=== PATIENT | male | born 1950 | race Caucasian/White ===

== ENCOUNTER 2017-05-10 08:01 | Inpatient (IN) | payer MEDICARE, MEDICAID ==
[~2017-05-10] VITALS: Ht 175.3 cm; Wt 98.5 kg
[2017-05-10] MEDS ORDERED: LISI-167 PO ×2 (08:58→09:00)
[2017-05-10] MEDS ORDERED: SPIR25TA3 PO (08:58)
[2017-05-10] MEDS ORDERED: ATOR-2 PO (08:58)
[2017-05-10] MEDS ORDERED: CARV12.52 PO (08:58)
[2017-05-10] MEDS ORDERED: APIX5TAB PO (08:58)
[2017-05-10 09:13] LABS: ALBUMIN 4.4 g/dL (3.4-5.0); ANION GAP 8 mmol/L (5-15); CALCIUM 8.7 mg/dL (8.5-10.1); CHLORIDE 110 mmol/L (98-107); CREATININE 5.02 mg/dL (0.7-1.3)
[2017-05-10 09:16] LABS: TROPONIN I < 0.015 ng/mL (0.000-0.045)
[2017-05-10] MEDS ORDERED: SODIUM CHLORIDE 0.9% 1,000ML IVBOLUS ONE (09:30)
[2017-05-10 09:35] LABS: BASOPHILS # (AUTO) 0.03 x10^3/uL (0-0.1); BASOPHILS % (AUTO) 0 % (0-1); EOSINOPHILS # (AUTO) 0.15 x10^3/uL (0-0.4); EOSINOPHILS % (AUTO) 1 % (1-7); LYMPHOCYTES # (AUTO) 2.58 x10^3/uL (1-3.4); LYMPHOCYTES % (AUTO) 18 % (22-44); MD NO; MEAN CORPUSCULAR HGB CONC 34.1 g/dL (33.2-36.2); MEAN CORPUSCULAR VOLUME 102.8 fL (81-97); MEAN PLATELET VOLUME 11.9 fL (7.4-10.4); MONOCYTES % (AUTO) 10 % (2-9); NEUTROPHILS # (AUTO) 9.94 x10^3/uL (1.8-6.8); NEUTROPHILS % (AUTO) 71 % (42-75); PLATELET COUNT 157 x10^3/uL (130-400); RED BLOOD COUNT 4.25 x10^6/uL (4.38-5.82); RED CELL DISTRIBUTION WIDTH 13.3 % (9.4-14.8)
[2017-05-10] MEDS ORDERED: SODIUM POLYSTYRENE SULFONATE ORAL SUSP ONE (09:45)
[2017-05-10] MEDS ORDERED: SODIUM BICARB 8.4%, 50ML SYRINGE ONE (09:45)
[2017-05-10] MEDS ORDERED: DEXTROSE 50%, 50ML SYRINGE ONE (09:45)
[2017-05-10] MEDS ORDERED: CALCIUM CHLORIDE 10%, 10ML SYR ONE (09:45)
[2017-05-10] MEDS ORDERED: INSULIN REGULAR 100 UNITS/ML, 3ML VIAL ONE (09:46)
[2017-05-10] MEDS ORDERED: SODIUM POLY SULFONATE UDC 15 GM/60 ML PO ONE (10:00)
[2017-05-10] MEDS ORDERED: CALCIUM CHLORIDE 10%, 10ML SYR IVPush ONE (10:00)
[2017-05-10] MEDS ORDERED: INSULIN REGULAR 100 UNITS/ML, 3ML VIAL IVPush ONE (10:00)
[2017-05-10] MEDS ORDERED: SODIUM BICARB 8.4%, 50ML SYRINGE IVPush ONE (10:00)
[2017-05-10] MEDS ORDERED: DEXTROSE 50%, 50ML SYRINGE IVPush ONE (10:00)
[2017-05-10] MEDS ORDERED: ALBUTEROL 0.5%, 20ML NPPB ONE (10:00)
[2017-05-10] MEDS ORDERED: SODIUM BICARBONATE 8.4% 150 MEQ in DEXTROSE 5% 1,000 ML IV SCH (11:00)
[2017-05-10 12:20] LABS: CLOSTRIDIUM DIFFICILE ANTIGEN NEGATIVE; CLOSTRIDIUM DIFFICILE TOXIN NEGATIVE (Negative)
[2017-05-10] MEDS ORDERED: LABETALOL 5MG/ML, 20ML IVPush PRN (14:00)
[2017-05-10] MEDS ORDERED: ONDANSETRON ODT 4 MG PO PRN (14:00)
[2017-05-10] MEDS ORDERED: ONDANSETRON 2MG/ML, 2ML IVPush PRN (14:00)
[2017-05-10 15:07] VITALS: BP 157/99
[2017-05-10] MEDS: HEPARIN 5,000 UNITS/ML, 1ML SQ SCH (16:19)
[2017-05-10 18:15] LABS: ANION GAP 12 mmol/L (5-15); CHLORIDE 107 mmol/L (98-107); CREATININE 3.27 mg/dL (0.7-1.3)
[2017-05-10 19:55] VITALS: BP 90/55
[2017-05-10] MEDS ORDERED: ACETAMINOPHEN 325 MG TABLET ONE (20:43)
[2017-05-10] MEDS: CARVEDILOL 12.5 MG TABLET PO SCH (20:51)
[2017-05-10] MEDS: ATORVASTATIN 80 MG TABLET PO SCH (20:51)
[2017-05-10] MEDS: SODIUM CHLORIDE 0.9% 1,000 ML IV SCH (20:52)
[2017-05-10] MEDS ORDERED: ACETAMINOPHEN 325 MG TABLET PO PRN (21:00)
[2017-05-10] MEDS ORDERED: FAMOTIDINE 20 MG/2 ML IVPush SCH (21:00)
[2017-05-11] MEDS: HEPARIN 5,000 UNITS/ML, 1ML SQ SCH (00:22)
[2017-05-11 03:51] VITALS: BP 91/36
[2017-05-11] MEDS: SODIUM CHLORIDE 0.9% 1,000 ML IV SCH (05:30)
[2017-05-11 05:43] LABS: CHLORIDE 111 mmol/L (98-107)
[2017-05-11 05:56] LABS: ALANINE AMINOTRANSFERASE 22 U/L (12-78); ALBUMIN 2.8 g/dL (3.4-5.0); ALKALINE PHOSPHATASE 52 U/L (45-117); ANION GAP 9 mmol/L (5-15); BILIRUBIN,TOTAL 0.4 mg/dL (0.2-1.0); CALCIUM 7.4 mg/dL (8.5-10.1); TOTAL PROTEIN 5.6 g/dL (6.4-8.2)
[2017-05-11 06:18] LABS: MEAN CORPUSCULAR HEMOGLOBIN 35.4 pg (27.5-34.5); MEAN CORPUSCULAR HGB CONC 34.7 g/dL (33.2-36.2); MEAN CORPUSCULAR VOLUME 102.2 fL (81-97); MEAN PLATELET VOLUME 12.5 fL (7.4-10.4); PLATELET COUNT 102 x10^3/uL (130-400); RED BLOOD COUNT 3.18 x10^6/uL (4.38-5.82); RED CELL DISTRIBUTION WIDTH 13.3 % (9.4-14.8)
[2017-05-11 06:19] LABS: BASOPHILS # (AUTO) 0.04 x10^3/uL (0-0.1); BASOPHILS % (AUTO) 0 % (0-1); EOSINOPHILS # (AUTO) 0.13 x10^3/uL (0-0.4); EOSINOPHILS % (AUTO) 1 % (1-7); LYMPHOCYTES # (AUTO) 2.59 x10^3/uL (1-3.4); LYMPHOCYTES % (AUTO) 28 % (22-44); MD SCAN; MONOCYTES # (AUTO) 1.34 x10^3/uL (0.2-0.8); MONOCYTES % (AUTO) 14 % (2-9); NEUTROPHILS # (AUTO) 5.22 x10^3/uL (1.8-6.8); NEUTROPHILS % (AUTO) 56 % (42-75)
[2017-05-11 08:00] VITALS: BP 91/62
[2017-05-11] MEDS: CARVEDILOL 12.5 MG TABLET PO SCH ×2 (09:00→20:52)
[2017-05-11] MEDS: SENNA/DOCUSATE TABLET PO SCH (09:00)
[2017-05-11] MEDS: SODIUM BICARBONATE 8.4% 75 MEQ in SODIUM CHLORIDE 0.45% 1,000 ML IV SCH ×2 (10:22→19:42)
[2017-05-11 10:48] LABS: FOLATE LEVEL 8.1 ng/mL (3.1-17.5); THYROID STIMULATING HORMONE 0.834 mIU/L (0.358-3.740)
[2017-05-11 14:00] VITALS: BP 115/56
[2017-05-11 20:31] VITALS: BP 107/66
[2017-05-11] MEDS: APIXABAN 5 MG TABLET PO SCH (20:52)
[2017-05-11] MEDS: FAMOTIDINE 20 MG TABLET PO SCH (20:52)
[2017-05-11] MEDS: ATORVASTATIN 80 MG TABLET PO SCH (20:52)
[2017-05-12 02:00] VITALS: BP 122/67
[2017-05-12] MEDS ORDERED: PANTOPRAZOLE 20MG TABLET PO SCH (07:30)
[2017-05-12] MEDS: SODIUM BICARBONATE 8.4% 75 MEQ in SODIUM CHLORIDE 0.45% 1,000 ML IV SCH (07:39)
[2017-05-12 07:51] VITALS: BP 123/75
[2017-05-12 08:47] LABS: ANION GAP 6 mmol/L (5-15); CALCIUM 7.7 mg/dL (8.5-10.1); CHLORIDE 110 mmol/L (98-107); CREATININE 2.59 mg/dL (0.7-1.3)
[2017-05-12] MEDS: SENNA/DOCUSATE TABLET PO SCH (09:00)
[2017-05-12] MEDS: APIXABAN 5 MG TABLET PO SCH ×2 (09:02→21:41)
[2017-05-12] MEDS: CARVEDILOL 12.5 MG TABLET PO SCH ×2 (09:02→21:41)
[2017-05-12] MEDS ORDERED: SODIUM BICARBONATE 8.4% 150 MEQ in DEXTROSE 5% 1,000 ML IV SCH (10:30)
[2017-05-12] MEDS: SODIUM BICARBONATE 8.4% 150 MEQ in DEXTROSE 5% 1,000 ML IV SCH ×2 (11:15→22:43)
[2017-05-12 13:56] VITALS: BP 162/77
[2017-05-12 20:00] VITALS: BP 128/77
[2017-05-12] MEDS: FAMOTIDINE 20 MG TABLET PO SCH (21:41)
[2017-05-12] MEDS: ATORVASTATIN 80 MG TABLET PO SCH (21:41)
[2017-05-13 04:00] VITALS: BP 127/76
[2017-05-13 06:37] LABS: ALBUMIN 2.6 g/dL (3.4-5.0); ANION GAP 3 mmol/L (5-15); CALCIUM 7.4 mg/dL (8.5-10.1); CHLORIDE 107 mmol/L (98-107)
[2017-05-13 06:40] LABS: ALANINE AMINOTRANSFERASE 21 U/L (12-78); ALKALINE PHOSPHATASE 40 U/L (45-117); BILIRUBIN,TOTAL 0.2 mg/dL (0.2-1.0); CREATININE 2.19 mg/dL (0.7-1.3); TOTAL PROTEIN 5.4 g/dL (6.4-8.2)
[2017-05-13 06:58] VITALS: BP 116/69
[2017-05-13 06:59] LABS: MEAN CORPUSCULAR HEMOGLOBIN 35.4 pg (27.5-34.5); MEAN CORPUSCULAR HGB CONC 34.3 g/dL (33.2-36.2); MEAN CORPUSCULAR VOLUME 103.4 fL (81-97); MEAN PLATELET VOLUME 12.7 fL (7.4-10.4); PLATELET COUNT 78 x10^3/uL (130-400); RED BLOOD COUNT 2.74 x10^6/uL (4.38-5.82); RED CELL DISTRIBUTION WIDTH 13.4 % (9.4-14.8)
[2017-05-13 07:00] LABS: BASOPHILS # (AUTO) 0.03 x10^3/uL (0-0.1); BASOPHILS % (AUTO) 0 % (0-1); EOSINOPHILS # (AUTO) 0.09 x10^3/uL (0-0.4); EOSINOPHILS % (AUTO) 1 % (1-7); LYMPHOCYTES # (AUTO) 2.03 x10^3/uL (1-3.4); LYMPHOCYTES % (AUTO) 26 % (22-44); MD MORPH REVIEW ONLY; MONOCYTES # (AUTO) 1.21 x10^3/uL (0.2-0.8); MONOCYTES % (AUTO) 16 % (2-9); NEUTROPHILS # (AUTO) 4.42 x10^3/uL (1.8-6.8); NEUTROPHILS % (AUTO) 57 % (42-75)
[2017-05-13 07:01] LABS: ANISOCYTOSIS 1+
[2017-05-13 07:02] LABS: <PLATELET ESTIMATE> DECREASED; LARGE PLATELETS 1+
[2017-05-13] MEDS ORDERED: MAGNESIUM SULFATE PMX 2GM/50ML 50 ML IV ONE (08:00)
[2017-05-13] MEDS: SENNA/DOCUSATE TABLET PO SCH (09:00)
[2017-05-13] MEDS: CARVEDILOL 12.5 MG TABLET PO SCH ×2 (09:32→21:06)
[2017-05-13] MEDS: APIXABAN 5 MG TABLET PO SCH ×2 (09:32→21:06)
[2017-05-13 14:00] VITALS: BP 135/76
[2017-05-13 19:39] VITALS: BP 132/75
[2017-05-13] MEDS: ATORVASTATIN 80 MG TABLET PO SCH (21:05)
[2017-05-13] MEDS: FAMOTIDINE 20 MG TABLET PO SCH (21:05)
[2017-05-14 02:19] VITALS: BP 99/55
[2017-05-14 07:09] VITALS: BP 133/82
[2017-05-14 07:39] LABS: ALBUMIN 2.9 g/dL (3.4-5.0); ANION GAP 7 mmol/L (5-15); CALCIUM 7.5 mg/dL (8.5-10.1); CHLORIDE 105 mmol/L (98-107); CREATININE 2.22 mg/dL (0.7-1.3)
[2017-05-14] MEDS: CARVEDILOL 12.5 MG TABLET PO SCH (08:54)
[2017-05-14] MEDS: APIXABAN 5 MG TABLET PO SCH (08:54)
[2017-05-14] MEDS: SENNA/DOCUSATE TABLET PO SCH (08:57)
[2017-05-14] MEDS ORDERED: LISINOPRIL 5 MG TABLET PO SCH (09:00)
[2017-05-14] MEDS ORDERED: SPIRONOLACTONE 25 MG TABLET PO SCH (09:00)
[2017-05-14] MEDS ORDERED: ASPI-621 PO (09:26)
[2017-05-14] MEDS ORDERED: TORS10TA4 PO (09:28)
[2017-05-15] MEDS ORDERED: ASPIRIN 81 MG TABLET EC PO SCH (06:00)
== END 2017-05-14 10:30 | disposition home or self-care (01) | DRG 682 ==
LOC: ED 09:19 → EDIP 10:46 → 4WST 15:02 → DCLOUNGE 05-14 10:20
PROVIDERS: ADMIT Internal Medicine; ATTEND Internal Medicine
PROC: 02HV33Z Insertion of Infusion Device into Superior Vena Cava, Percutaneous Approach (ICD-10-PCS; principal; 2017-05-10)
PROC: B548ZZA Ultrasonography of Superior Vena Cava, Guidance (ICD-10-PCS; 2017-05-10)
PROC: 5A1D70Z Performance of Urinary Filtration, Intermittent, Less than 6 Hours Per Day (ICD-10-PCS; 2017-05-10)
DX: N17.9 Acute kidney failure, unspecified (principal); E43 Unspecified severe protein-calorie malnutrition; I47.2 Ventricular tachycardia; D68.69 Other thrombophilia; D69.6 Thrombocytopenia, unspecified; E87.2 Acidosis; E87.1 Hypo-osmolality and hyponatremia; I48.91 Unspecified atrial fibrillation; I12.9 Hypertensive chronic kidney disease with stage 1 through stage 4 chronic kidney disease, or unspecified chronic kidney disease; W18.30XA Fall on same level, unspecified, initial encounter; I25.10 Atherosclerotic heart disease of native coronary artery without angina pectoris; E78.5 Hyperlipidemia, unspecified; N18.9 Chronic kidney disease, unspecified; D72.829 Elevated white blood cell count, unspecified; D75.89 Other specified diseases of blood and blood-forming organs; E87.5 Hyperkalemia; F17.210 Nicotine dependence, cigarettes, uncomplicated; I25.5 Ischemic cardiomyopathy; I49.5 Sick sinus syndrome; Z79.01 Long term (current) use of anticoagulants; Z79.899 Other long term (current) drug therapy; Z83.3 Family history of diabetes mellitus; Z86.73 Personal history of transient ischemic attack (TIA), and cerebral infarction without residual deficits; Z95.810 Presence of automatic (implantable) cardiac defibrillator; I25.2 Old myocardial infarction; Z86.79 Personal history of other diseases of the circulatory system; Z87.442 Personal history of urinary calculi; Z95.1 Presence of aortocoronary bypass graft; Z99.2 Dependence on renal dialysis; Y93.89 Activity, other specified; Y92.89 Other specified places as the place of occurrence of the external cause; Z68.32 Body mass index [BMI] 32.0-32.9, adult
CPT/HCPCS: 36415; 36556; 71045; 76770; 76937; 77001; 80048; 80053; 82040; 82607; 82746; 83735; 84100; 84443; 84484; 85025; 86480; 86704; 86706; 87046; 87324; 87340; 87899; 93005; J1644; J7070; C1751; J1642; J3475; J7030; S0028

== ENCOUNTER 2019-11-19 09:40 | Observation (INO) | payer MEDICARE, MEDICAID ==
[~2019-11-19] VITALS: Ht 180.3 cm; Wt 116.0 kg
[~2019-11-19 09:40] MED LIST: APIX5TAB PO; ASPI81TA45 PO; ATOR-2 PO; ATOR40TA78 PO; CARV12.52 PO; FENTANYL PF 250 MCG/5ML ONE; FURO40TA6 PO; HYDR-3341 PO; LISI-167 PO; POTA20TA14 PO; SPIR25TA5 PO; TORS10TA4 PO
[2019-11-19] MEDS ORDERED: SODIUM CHLORIDE 0.9% 1,000 ML IV SCH ×2 (09:46)
[2019-11-19] MEDS ORDERED: CEFAZOLIN 2 GM/50 ML IVPB ONE ×2 (10:00→11:00)
[2019-11-19 10:05] VITALS: BP 167/78
[2019-11-19] MEDS ORDERED: SUCR1ORA5 PO (10:20)
[2019-11-19] MEDS ORDERED: PANT40TA6 PO (10:20)
[2019-11-19] MEDS ORDERED: POTA20TA6 PO (10:20)
[2019-11-19 10:46] LABS: BASOPHILS # (AUTO) 0.05 x10^3/uL (0-0.1); BASOPHILS % (AUTO) 1 % (0-1); EOSINOPHILS % (AUTO) 1 % (1-7); LYMPHOCYTES # (AUTO) 0.91 x10^3/uL (1-3.4); LYMPHOCYTES % (AUTO) 9 % (22-44); MD NO; MEAN CORPUSCULAR HEMOGLOBIN 28.8 pg (27.5-34.5); MEAN PLATELET VOLUME 10.4 fL (7.4-10.4); MONOCYTES # (AUTO) 1.33 x10^3/uL (0.2-0.8); MONOCYTES % (AUTO) 13 % (2-9); NEUTROPHILS # (AUTO) 7.52 x10^3/uL (1.8-6.8); NEUTROPHILS % (AUTO) 76 % (42-75); PLATELET COUNT 148 x10^3/uL (130-400); RED CELL DISTRIBUTION WIDTH 18.7 % (9.4-14.8)
[2019-11-19] MEDS ORDERED: ATOR40TA PO (10:46)
[2019-11-19] MEDS ORDERED: CARV3.1212 PO (10:46)
[2019-11-19] MEDS ORDERED: SUCR1TAB33 PO (10:47)
[2019-11-19 10:56] LABS: ANION GAP 7 mmol/L (5-15); CALCIUM 8.6 mg/dL (8.5-10.1); CHLORIDE 103 mmol/L (98-107); CREATININE 2.12 mg/dL (0.7-1.3)
[2019-11-19] MEDS ORDERED: DEXAMETHASONE 4 MG/ML, 1ML ONE (11:11)
[2019-11-19] MEDS ORDERED: SUCCINYLCHOLINE 20 MG/ML, 10ML ONE (11:11)
[2019-11-19] MEDS ORDERED: PROPOFOL 10 MG/ML, 20ML ONE (11:11)
[2019-11-19] MEDS ORDERED: ROCURONIUM 10MG/ML,5ML ONE (11:11)
[2019-11-19] MEDS ORDERED: ONDANSETRON 2MG/ML, 2ML ONE (11:17)
[2019-11-19] MEDS ORDERED: LIDOCAINE 1%, 20ML ONE ×2 (11:34→12:40)
[2019-11-19] MEDS ORDERED: CEFAZOLIN 1,000 MG ONE (12:34)
[2019-11-19] MEDS ORDERED: HOLD MEDICATION MC PRN (15:30)
[2019-11-19] MEDS ORDERED: ONDANSETRON 2MG/ML, 2ML IVPush PRN (16:00)
[2019-11-19] MEDS ORDERED: MEPERIDINE/PF 25MG/0.5ML IVPush PRN (16:00)
[2019-11-19] MEDS ORDERED: ALBUTEROL SULFATE 2.5 MG/3 ML NPPB PRN (16:00)
[2019-11-19] MEDS ORDERED: PROMETHAZINE 25 MG/ML, 1ML IVPush PRN (16:00)
[2019-11-19] MEDS ORDERED: DIAZEPAM 5 MG/ML, 2ML IVPush PRN (16:00)
[2019-11-19] MEDS ORDERED: LABETALOL 5MG/ML, 20ML IV PRN (16:00)
[2019-11-19] MEDS ORDERED: EPHEDRINE 50 MG/ML, 1ML IVPush PRN (16:00)
[2019-11-19] MEDS ORDERED: OXYcodone 5 MG/5 ML ORAL.SOL UDC PO PRN (16:00)
[2019-11-19] MEDS ORDERED: DIPHENHYDRAMINE 50 MG/ML, 1ML IVPush PRN (16:00)
[2019-11-19] MEDS ORDERED: MIDAZOLAM 1 MG/ML, 2ML IV PRN (16:00)
[2019-11-19] MEDS ORDERED: FENTANYL PF 100 MCG/2ML IV PRN (16:00)
[2019-11-19] MEDS ORDERED: ACETAMINOPHEN 325 MG TABLET PO PRN (16:00)
[2019-11-19] MEDS ORDERED: PROMETHAZINE 12.5 MG SUPP PR PRN (16:00)
[2019-11-19] MEDS ORDERED: hydrALAzine 20 MG/ML, 1ML IV PRN (16:00)
[2019-11-19] MEDS ORDERED: HYDROmorphone 1 MG/ML, 1ML INJ IVPush PRN (16:00)
[2019-11-19] MEDS ORDERED: SUCRALFATE 1 GM TABLET ONE (16:45)
[2019-11-19] MEDS: SUCRALFATE 1 GM TABLET PO SCH ×2 (16:54→19:56)
[2019-11-19 19:00] VITALS: BP 143/91
[2019-11-19] MEDS: PANTOPRAZOLE 40MG TABLET PO SCH (19:56)
[2019-11-19] MEDS: CARVEDILOL 25 MG TABLET PO SCH (19:56)
[2019-11-19] MEDS: SODIUM CHLORIDE FLUSH 10ML SYR IVF SCH (19:56)
[2019-11-19] MEDS ORDERED: ATORVASTATIN 80 MG TABLET PO SCH (21:00)
[2019-11-20 00:10] VITALS: BP 118/72
[2019-11-20] MEDS: SUCRALFATE 1 GM TABLET PO SCH ×2 (06:18→09:45)
[2019-11-20 07:40] VITALS: BP 132/71
[2019-11-20] MEDS ORDERED: FUROSEMIDE 40 MG TABLET PO SCH (09:00)
[2019-11-20] MEDS: SODIUM CHLORIDE FLUSH 10ML SYR IVF SCH (09:45)
[2019-11-20] MEDS: PANTOPRAZOLE 40MG TABLET PO SCH (09:45)
[2019-11-20] MEDS: CARVEDILOL 25 MG TABLET PO SCH (09:45)
[2019-11-20] MEDS ORDERED: FUROSEMIDE 40 MG/4 ML ONE (10:03)
[2019-11-20] MEDS ORDERED: FUROSEMIDE 40 MG/4 ML IV ONE (10:30)
[2019-11-20] MEDS ORDERED: POTASSIUM CHLORIDE 20 MEQ TAB.ER.PRT PO ONE (10:30)
== END 2019-11-20 14:55 | disposition home or self-care (01) ==
LOC: CACL 09:40 → ORIP 15:24 → 5SO 16:46
PROVIDERS: ADMIT Internal Medicine Clinical Cardiac Electrophysiology; ATTEND Internal Medicine Clinical Cardiac Electrophysiology
DX: Z03.818 Encounter for observation for suspected exposure to other biological agents ruled out (principal); I48.91 Unspecified atrial fibrillation; I50.43 Acute on chronic combined systolic (congestive) and diastolic (congestive) heart failure; I13.0 Hypertensive heart and chronic kidney disease with heart failure and stage 1 through stage 4 chronic kidney disease, or unspecified chronic kidney disease; I25.5 Ischemic cardiomyopathy; N18.3 Chronic kidney disease, stage 3 (moderate); E78.5 Hyperlipidemia, unspecified; F17.210 Nicotine dependence, cigarettes, uncomplicated; J44.9 Chronic obstructive pulmonary disease, unspecified; Z79.01 Long term (current) use of anticoagulants; Z79.899 Other long term (current) drug therapy
CPT/HCPCS: 33225; 33264; 36005; 36415; 71045; 71046; 80048; 85025; 87635; 93650; 96374; C1766; C1769; C1779; C1882; C1887; C1892; C1894; C1900; G0378; J0330; J0690; J1100; J1940; J2405; J2704; J3010; J3490

== ENCOUNTER 2020-01-03 14:57 | Inpatient (IN) | payer MEDICARE, MEDICAID ==
[~2020-01-03] VITALS: Ht 180.3 cm; Wt 109.9 kg
[~2020-01-03 14:57] MED LIST changes: +ATOR40TA PO; +CARV3.1212 PO; -FENTANYL PF 250 MCG/5ML ONE; +PANT40TA6 PO; +POTA20TA6 PO; +SUCR1ORA5 PO; +SUCR1TAB33 PO
[2020-01-03] MEDS ORDERED: HYDR-3341 PO (15:43)
--- NOTE | 2020-01-03 16:02 | NUR ---
PT UPRIGHT ON GURNEY AWAKE & COMFORTABLE, WATCHING TV, RESPONDS APPROP TO STAFF, NAD, COMFORT MEASURES PROVIDED, CALL LIGHT WITHIN REACH.
[2020-01-03 16:11] LABS: BASOPHILS # (AUTO) 0.01 x10^3/uL (0-0.1); BASOPHILS % (AUTO) 0 % (0-1); EOSINOPHILS # (AUTO) 0.16 x10^3/uL (0-0.4); EOSINOPHILS % (AUTO) 2 % (1-7); LYMPHOCYTES # (AUTO) 1.42 x10^3/uL (1-3.4); LYMPHOCYTES % (AUTO) 19 % (22-44); MD NO; MEAN CORPUSCULAR HGB CONC 31.9 g/dL (33.2-36.2); MEAN CORPUSCULAR VOLUME 87.6 fL (81-97); MEAN PLATELET VOLUME 10.6 fL (7.4-10.4); MONOCYTES # (AUTO) 1.18 x10^3/uL (0.2-0.8); MONOCYTES % (AUTO) 16 % (2-9); NEUTROPHILS # (AUTO) 4.85 x10^3/uL (1.8-6.8); NEUTROPHILS % (AUTO) 64 % (42-75); PLATELET COUNT 138 x10^3/uL (130-400); RED BLOOD COUNT 3.79 x10^6/uL (4.38-5.82); RED CELL DISTRIBUTION WIDTH 20.5 % (9.4-14.8)
[2020-01-03 16:20] LABS: ALANINE AMINOTRANSFERASE 17 U/L (12-78); ALBUMIN 3.6 g/dL (3.4-5.0); ANION GAP 8 mmol/L (5-15); CALCIUM 8.3 mg/dL (8.5-10.1); CHLORIDE 106 mmol/L (98-107)
[2020-01-03 16:25] LABS: ALKALINE PHOSPHATASE 116 U/L (45-117); BILIRUBIN,TOTAL 0.6 mg/dL (0.2-1.0); CREATININE 2.61 mg/dL (0.7-1.3); TOTAL PROTEIN 8.5 g/dL (6.4-8.2); TROPONIN I 0.018 ng/mL (0.000-0.045)
--- NOTE | 2020-01-03 16:49 | NUR ---
UNABLE TO OBTAIN PIV ACCESS, AWAITING OTHER STAFF ATTEMPT VIA US, STU AT BS.
[2020-01-03] MEDS ORDERED: FUROSEMIDE 40 MG/4 ML IV ONE (17:00)
--- NOTE | 2020-01-03 17:05 | NUR ---
PT REMAINS UPRIGHT ON GURNEY AWAKE & COMFORTABLE, WATCHING TV, RESPONDS APPROP TO STAFF, NAD, COMFORT MEASURES PROVIDED, CALL LIGHT WITHIN REACH.
[2020-01-03] MEDS ORDERED: FUROSEMIDE 40 MG/4 ML ONE (17:19)
[2020-01-03] MEDS ORDERED: hydrALAzine 20 MG/ML, 1ML IVPush PRN (17:30)
[2020-01-03] MEDS ORDERED: ACETAMINOPHEN 325 MG TABLET PO PRN (17:30)
[2020-01-03] MEDS ORDERED: ONDANSETRON 2MG/ML, 2ML IVPush PRN (17:30)
--- NOTE | 2020-01-03 17:46 | NUR ---
Pt to be admitted to card-tele, room 517. Report called to Ann [place].
[2020-01-03 18:28] VITALS: BP 145/91
[2020-01-03] MEDS ORDERED: ATORVASTATIN 80 MG TABLET PO SCH (21:00)
[2020-01-03 21:30] VITALS: BP 133/87
[2020-01-03] MEDS: APIXABAN 2.5 MG TABLET PO SCH (21:40)
[2020-01-03] MEDS: CARVEDILOL 12.5 MG TABLET PO SCH (21:40)
[2020-01-04 01:26] VITALS: BP 133/85
[2020-01-04] MEDS ORDERED: ALBU6.7H8 INH (02:14)
[2020-01-04] MEDS ORDERED: CALCIUM CARBONATE 500 MG TAB.CHEW PO PRN (02:30)
[2020-01-04] MEDS ORDERED: SIMETHICONE 125 MG CHEW TAB PO SCH ×2 (02:30→02:53)
[2020-01-04] MEDS ORDERED: ALBUTEROL HFA 90 MCG/SPRAY INH PRN (03:00)
[2020-01-04] MEDS: SIMETHICONE 125 MG CHEW TAB PO SCH ×2 (03:10→08:33)
[2020-01-04 05:07] LABS: BASOPHILS # (AUTO) 0.03 x10^3/uL (0-0.1); BASOPHILS % (AUTO) 0 % (0-1); EOSINOPHILS # (AUTO) 0.24 x10^3/uL (0-0.4); EOSINOPHILS % (AUTO) 3 % (1-7); LYMPHOCYTES # (AUTO) 1.41 x10^3/uL (1-3.4); LYMPHOCYTES % (AUTO) 15 % (22-44); MD NO; MEAN CORPUSCULAR HEMOGLOBIN 27.9 pg (27.5-34.5); MEAN CORPUSCULAR HGB CONC 31.9 g/dL (33.2-36.2); MEAN CORPUSCULAR VOLUME 87.5 fL (81-97); MEAN PLATELET VOLUME 10.9 fL (7.4-10.4); MONOCYTES # (AUTO) 1.27 x10^3/uL (0.2-0.8); MONOCYTES % (AUTO) 13 % (2-9); NEUTROPHILS # (AUTO) 6.54 x10^3/uL (1.8-6.8); NEUTROPHILS % (AUTO) 69 % (42-75); PLATELET COUNT 136 x10^3/uL (130-400); RED BLOOD COUNT 3.68 x10^6/uL (4.38-5.82); RED CELL DISTRIBUTION WIDTH 20.8 % (9.4-14.8)
[2020-01-04 05:17] LABS: ANION GAP 9 mmol/L (5-15); CALCIUM 8.3 mg/dL (8.5-10.1); CHLORIDE 108 mmol/L (98-107)
[2020-01-04 05:18] LABS: CREATININE 2.36 mg/dL (0.7-1.3)
[2020-01-04 06:45] VITALS: BP 143/93
[2020-01-04] MEDS ORDERED: FUROSEMIDE 40 MG/4 ML IV SCH ×3 (07:30→16:00)
[2020-01-04] MEDS: CARVEDILOL 12.5 MG TABLET PO SCH (08:34)
[2020-01-04] MEDS: APIXABAN 2.5 MG TABLET PO SCH (08:34)
[2020-01-04] MEDS ORDERED: FUROSEMIDE 40 MG/4 ML ONE (08:44)
[2020-01-04] MEDS ORDERED: POTASSIUM CHLORIDE 20 MEQ TAB.ER.PRT PO SCH (09:00)
[2020-01-04] MEDS ORDERED: SENNA/DOCUSATE TABLET PO SCH (09:00)
[2020-01-04] MEDS ORDERED: BUDESONIDE 0.5 MG/2 ML INHA INH SCH (10:30)
[2020-01-04] MEDS ORDERED: PANTOPRAZOLE 40 MG IV IVPush SCH (10:30)
[2020-01-04 12:05] VITALS: BP 130/91
[2020-01-04] MEDS ORDERED: FLUTICASONE NASAL SPRAY 16GM NAS SCH ×2 (14:30→15:15)
[2020-01-04] MEDS ORDERED: ZOLPIDEM 5MG TABLET PO SCH (21:00)
[2020-01-04] MEDS ORDERED: APIXABAN 5 MG TABLET PO SCH (21:00)
== END 2020-01-04 15:16 | disposition left against medical advice (07) | DRG 291 ==
LOC: ED 17:17 → EDIP 17:35 → 5SO 17:59
PROVIDERS: ADMIT Hospitalist; ATTEND Hospitalist
DX: I13.0 Hypertensive heart and chronic kidney disease with heart failure and stage 1 through stage 4 chronic kidney disease, or unspecified chronic kidney disease (principal); I50.43 Acute on chronic combined systolic (congestive) and diastolic (congestive) heart failure; N17.0 Acute kidney failure with tubular necrosis; D64.9 Anemia, unspecified; E78.5 Hyperlipidemia, unspecified; F17.200 Nicotine dependence, unspecified, uncomplicated; I25.5 Ischemic cardiomyopathy; Z53.29 Procedure and treatment not carried out because of patient's decision for other reasons; G89.29 Other chronic pain; I48.91 Unspecified atrial fibrillation; N18.9 Chronic kidney disease, unspecified; Z95.810 Presence of automatic (implantable) cardiac defibrillator; I25.2 Old myocardial infarction; Z86.73 Personal history of transient ischemic attack (TIA), and cerebral infarction without residual deficits
CPT/HCPCS: 36415; 71045; 80048; 80053; 83735; 83880; 84100; 84443; 84484; 85025; 93005; 96374; G0378; J1940; C9113